=== PATIENT | female | born 1995 | race Caucasian/White ===

== ENCOUNTER → 2016-10-23 | Outpatient (CLI) | payer BC ==
[2016-10-23 16:28] LABS: BASO % 0.6 % (0.0-1.0); EOS # 0.2 K/mm3 (0.0-0.50); LARGE UNSTAINED CELL # 0.2 K/mm3 (0.0-0.4); LARGE UNSTAINED CELL % 2.5 % (0.0-4.0); LYMPH # 1.3 K/mm3 (1.5-6.5); LYMPH % 15.9 % (24.0-44.0); MEAN CORPUSCULAR HEMOGLOBIN 29.8 pg (27.0-33.0); MEAN CORPUSCULAR HGB CONC 35.7 g/dl (32.0-36.5); MEAN CORPUSCULAR VOLUME 83.4 fl (80.0-96.0); MONO # 0.5 K/mm3 (0.0-0.8); MONO % 6.4 % (0.0-5.0); NEUTROPHILS % 71.5 % (36.0-66.0); PLATELET COUNT, AUTOMATED 243 k/mm3 (150-450); RED CELL DISTRIBUTION WIDTH 12.3 % (11.5-14.5); WHITE BLOOD COUNT 8.4 K/mm3 (4.0-10.0)
[2016-10-23 18:04] LABS: HIV SCRN NEGATIVE (NEGATIVE)
[2016-10-23 18:05] LABS: CONTROL LINE INT CTR LINE PRESENT; HIV SCRN1 NEGATIVE (NEGATIVE)
== END ==
LOC: M LAB 14:38
PROVIDERS: ATTEND Advanced Practice Midwife
DX: Z34.81 Encounter for supervision of other normal pregnancy, first trimester (principal)

== ENCOUNTER → 2016-11-24 | Outpatient (REF) | payer BC | LOC: M LAB REF 17:12 | PROVIDERS: ATTEND Obstetrics & Gynecology | DX: Z34.82 Encounter for supervision of other normal pregnancy, second trimester (principal) ==

== ENCOUNTER → 2016-12-30 | Outpatient (CLI) | payer BC ==
--- NOTE | 2016-12-30 16:51 | REP ---
Clinical: Anatomical evaluation. Comparison: None . Findings: Examination demonstrates a single live intrauterine in variable presentation. motion is identified by technologist. Placenta is noted posterior fundally and grade zero without evidence for placenta previa or abruption. A small 6 mm placental cyst is noted in the mid placenta. Amniotic fluid volume is normal. Cervix measures 3.6 cm in length and appears closed. No evidence for nuchal cord. Gestational age by LMP 19 weeks 5 days with SHANI 05/21/2017 . Gestational age by current measurements 19 weeks 5 days with SHANI 05/21/2017 . FHR equals 150 beats per minute. BPD 4.5 cm 19 weeks 4 days HC 16.7 cm 19 weeks 2 days AC 14.5 cm 90 weeks 6 days FL 3.1 cm 19 weeks 5 days HL 3.0 cm 19 weeks 5 days HC/AC ratio 1.15 Estimated weight 310 grams ( 48th percentile). Anatomical assessment demonstrates normal structures including cranium, choroid plexus, cavum, cerebellum/posterior fossa, facial features, lungs, four-chamber heart/ventricular outflow tracts, diaphragm, stomach, cord insertion/three-vessel cord, kidneys/bladder, spine, and extremities. Impression: 1. Single live intrauterine in variable presentation demonstrating appropriate interval growth. 2. Anatomical assessment is complete and normal. 3. Benign appearing 6 mm cystic structure in the mid placenta likely placenta cyst versus small placental galaviz. Signed by Luis E Cobb MD 12/30/2016 04:42 P
== END ==
LOC: M RAD 15:12
PROVIDERS: ATTEND Obstetrics & Gynecology
DX: Z34.82 Encounter for supervision of other normal pregnancy, second trimester (principal); Z36 Encounter for antenatal screening of mother; Z3A.19 19 weeks gestation of pregnancy

== ENCOUNTER → 2017-01-23 | Outpatient (REF) | payer BC | LOC: M LAB REF 17:07 | PROVIDERS: ATTEND Advanced Practice Midwife | DX: Z34.83 Encounter for supervision of other normal pregnancy, third trimester (principal) ==

== ENCOUNTER → 2017-02-23 | Outpatient (REF) | payer BC | LOC: M LAB REF 12:44 | PROVIDERS: ATTEND Obstetrics & Gynecology | DX: Z34.83 Encounter for supervision of other normal pregnancy, third trimester (principal) ==

== ENCOUNTER → 2017-02-23 | Outpatient (CLI) | payer BC ==
[2017-02-23 13:06] LABS: BASO % 0.2 % (0.0-1.0); EOS # 0.4 K/mm3 (0.0-0.50); EOS % 3.5 % (0.0-3.0); LARGE UNSTAINED CELL # 0.1 K/mm3 (0.0-0.4); LARGE UNSTAINED CELL % 0.9 % (0.0-4.0); LYMPH # 1.3 K/mm3 (1.5-6.5); LYMPH % 11.1 % (24.0-44.0); MEAN CORPUSCULAR HEMOGLOBIN 30.1 pg (27.0-33.0); MEAN CORPUSCULAR HGB CONC 33.1 g/dl (32.0-36.5); MEAN CORPUSCULAR VOLUME 90.9 fl (80.0-96.0); MONO # 0.4 K/mm3 (0.0-0.8); MONO % 3.5 % (0.0-5.0); NEUTROPHILS # 9.3 K/mm3 (1.8-7.7); NEUTROPHILS % 80.8 % (36.0-66.0); PLATELET COUNT, AUTOMATED 296 k/mm3 (150-450); RED CELL DISTRIBUTION WIDTH 12.9 % (11.5-14.5); WHITE BLOOD COUNT 11.5 K/mm3 (4.0-10.0)
== END ==
LOC: M SMT 10:33
PROVIDERS: ATTEND Advanced Practice Midwife
DX: Z34.83 Encounter for supervision of other normal pregnancy, third trimester (principal)

== ENCOUNTER → 2017-03-25 | Outpatient (REF) | payer BC | LOC: M LAB REF 13:05 | PROVIDERS: ATTEND Obstetrics & Gynecology | DX: Z34.83 Encounter for supervision of other normal pregnancy, third trimester (principal) ==

== ENCOUNTER 2017-04-03 09:00 | Outpatient (RCR) | payer BC | END 2017-04-10 | disposition home or self-care (01) | LOC: M PT 09:00 | PROVIDERS: ATTEND Obstetrics & Gynecology | DX: Z51.89 Encounter for other specified aftercare (principal); O26.893 Other specified pregnancy related conditions, third trimester; M54.5 Low back pain ==

== ENCOUNTER → 2017-04-28 | Outpatient (REF) | payer BC ==
[~2017-04-28] MED LIST: ACET50TA PO; IBUP-1114 PO; PRENTAB9 PO
== END ==
LOC: M LAB REF 16:55
PROVIDERS: ATTEND Obstetrics & Gynecology
DX: O99.413 Diseases of the circulatory system complicating pregnancy, third trimester (principal); Z3A.00 Weeks of gestation of pregnancy not specified

== ENCOUNTER 2017-05-06 19:43 | Inpatient (IN) | payer BC ==
[~2017-05-06] VITALS: Ht 157.5 cm; Wt 69.0 kg
[2017-05-06] MEDS ORDERED: PENICILLIN G POTASSIUM IV 5 MU in D5W MINI-BAG PLUS 100 ML IV STA (20:02)
[2017-05-06 20:16] VITALS: BP 142/82
[2017-05-06] MEDS: miSOPROStol 50 MCG 1/2 TAB (S0191) PO SCH (20:43)
[2017-05-06 20:45] VITALS: BP 125/81
[2017-05-06] MEDS ORDERED: PANTOPRAZOLE 20 MG TAB PO ONE (21:00)
[2017-05-06 21:07] LABS: MEAN CORPUSCULAR HEMOGLOBIN 27.8 pg (27.0-33.0); MEAN CORPUSCULAR HGB CONC 33.9 g/dl (32.0-36.5); MEAN CORPUSCULAR VOLUME 81.9 fl (80.0-96.0); RED CELL DISTRIBUTION WIDTH 13.2 % (11.5-14.5); WHITE BLOOD COUNT 17.1 K/mm3 (4.0-10.0)
[2017-05-06 21:16] VITALS: BP 128/82
[2017-05-06 21:37] LABS: ALT/SGPT 12 U/L (12-78); AST/SGOT 15 U/L (15-37); BILIRUBIN,TOTAL 0.3 MG/DL (0.2-1.0); CREATININE FOR GFR 0.87 MG/DL (0.55-1.02); GLOMERULAR FILTRATION RATE > 60.0 (>60); URIC ACID 3.4 MG/DL (2.6-6.0)
[2017-05-06 21:46] VITALS: BP 131/82
[2017-05-06 22:15] VITALS: BP 133/84
[2017-05-06 23:59] VITALS: BP 132/86
[2017-05-07] MEDS ORDERED: PENICILLIN G POTASSIUM IV 2.5 MU in D5W 100 ML IV SCH ×2 (00:15→14:00)
[2017-05-07] MEDS: miSOPROStol 50 MCG 1/2 TAB (S0191) PO SCH ×3 (00:48→09:53)
[2017-05-07 00:56] VITALS: BP 125/79
[2017-05-07 01:49] VITALS: BP 133/83
[2017-05-07 03:51] VITALS: BP 127/78
--- NOTE | 2017-05-07 05:21 | HPE ---
DATE OF ADMISSION: 05/06/2017 HISTORY: Maria Isabel is a 21-year-old 1, para 0 at 37 and 6/7 weeks gestation with an estimated date of confinement (EDC) of 05/21/2017, based on first trimester ultrasound. She presents to labor and delivery today following a routine appointment in the office and noted to have elevated blood pressure with proteinuria. The decision was made following discussion with Dr. Garcia and Dr. Dahl for induction of labor due to preeclampsia. She does deny headache, visual disturbances, epigastric pain and right upper quadrant discomfort. She does deny regular contractions, vaginal bleeding and leakage of fluid. Her fetus has been active. care was initiated at [facility] in the first trimester. course complicated by a history of asthma that is been well controlled with Pulmicort inhaler, recurrent heart palpitations, tachycardia with a cardiology referral with normal echocardiogram. No recommendations made, okayed for a vaginal delivery. OBSTETRICAL HISTORY: Primigravida. OBSTETRIC LABORATORY DATA: Blood type A positive, antibody screen negative, rubella immune, VDRL nonreactive. She did have a positive urine culture, was treated and then did ultimately have a negative followup urine culture. Hepatitis B surface antigen negative, HIV negative. Hepatitis C antibody nonreactive. Gonorrhea and chlamydia negative. She did decline genetic serum screening markers. Gestational diabetic screening normal at 125, and her GBS is positive. PAST MEDICAL HISTORY: Asthma, seasonal allergies, childhood varicella. SURGERIES: None. FAMILY HISTORY: Thyroid dysfunction. SOCIAL HISTORY The patient is single. Her father of the baby is at bedside and supportive. She is a nonsmoker. Denies alcohol and drug use. No history of sexually transmitted infections and denies history of abuse, physical, sexual and emotional. ALLERGIES: No known drug allergies. CURRENT MEDICATIONS: - Zantac 150 mg by mouth twice a day - Pulmicort inhaler - Q-Rachel inhaler - vitamins OBJECTIVE: Temperature 98.3, pulse 74, respirations 16, blood pressure 142/82. heart rate is 145 with moderate variability, positive accelerations. No decelerations observed. She learned oriented times three. She is katerine every 3-5 minutes, mild to palpation. Her abdomen is gravid, cephalic presentation. Estimated weight 7 pounds. Sterile vaginal exam: Cervix is closed, thick, moderate texture, posterior, -3 station. ASSESSMENT: Intrauterine at 37-6/7 weeks gestation. heart rate category one, preeclampsia. PLAN: Admit the patient to labor and delivery. Labs including a pre-eclamptic profile and a spot urine. Out of bed ad yovani. Regular diet at this time. Start misoprostol 50 mcg by mouth every four hours for cervical ripening. I did review risks to induction of labor including but not limited to intolerance to labor, failed induction and increased risk for section. Reviewed risks related to expected management including worsening maternal conditioning, seizures, stroke, worsening condition. The patient was has had all her questions answered and does desire to proceed with induction at this time. I do anticipate cervical ripening. Will consider Nam bulb insertion potential. The patient does desire an epidural when she is in active labor.
[2017-05-07 05:56] VITALS: BP 128/81
[2017-05-07] MEDS ORDERED: PANTOPRAZOLE 20 MG TAB PO SCH (09:00)
[2017-05-07] MEDS ORDERED: PROMETHAZINE INJ 25 MG/ML VIAL (J2550) IV PRN (10:00)
[2017-05-07] MEDS ORDERED: BUTORPHANOL 2 MG/ML INJ (J0595) IV ONE (10:00)
[2017-05-07] MEDS ORDERED: PENICILLIN G POTASSIUM IV 5 MU in D5W MINI-BAG PLUS 100 ML IV STA (10:02)
[2017-05-07] MEDS ORDERED: FENTANYL 2MCG/ML ROPIVACAINE 0.2% IN 0.9% NACL 200ML IVBAG As Ordered ONE (13:09)
[2017-05-07] MEDS ORDERED: ONDANSETRON 4MG/2ML VIAL (J2405) As Ordered ONE (13:55)
[2017-05-07] MEDS ORDERED: EPIDURAL/PCA KEYS XX PRN (14:00)
[2017-05-07] MEDS ORDERED: ONDANSETRON 4MG/2ML VIAL (J2405) IV PRN ×2 (14:00→16:00)
[2017-05-07] MEDS ORDERED: diphenhydrAMINE INJ 50MG/ML VIAL (J1200) IV PRN (14:00)
[2017-05-07] MEDS ORDERED: EPIDURAL COMMENT XX SCH (14:00)
[2017-05-07] MEDS ORDERED: FENTANYL/ROPIVACAINE/NACL BAG 200 ML EPIDURAL SCH (14:00)
[2017-05-07] MEDS ORDERED: REFRIGERATOR IV KEYS XX PRN (14:00)
[2017-05-07] MEDS ORDERED: NALOXONE INJ 0.4 MG/1 ML VIAL (J2310) IV PRN (14:00)
[2017-05-07] MEDS ORDERED: LR 1,000 ML IV SCH (14:00)
[2017-05-07] MEDS ORDERED: ePHEDrine SULFATE 25 MG/5 ML(5MG/ML) SYRINGE IV PRN (14:00)
[2017-05-07] MEDS ORDERED: LACTATED RINGER'S 1000 ML IV PRN (14:00)
[2017-05-07] MEDS ORDERED: OXYTOCIN DRIP 30 UNITS in APPROPRIATE DILUENT 1 EA IV SCH ×2 (14:00→15:57)
[2017-05-07] MEDS ORDERED: ACETAMINOPHEN 500 MG TAB PO PRN (16:00)
[2017-05-07] MEDS ORDERED: MEASLES,MUMPS,RUBELLA VACCINE INJ (MMR-II) (90707) SC SCH (16:00)
[2017-05-07] MEDS ORDERED: ANUSOL HC CREAM 30GM TOP PRN (16:00)
[2017-05-07] MEDS ORDERED: MOM 30ML SUSPENSION UDC PO PRN (16:00)
[2017-05-07] MEDS ORDERED: DOCUSATE SODIUM 100 MG CAP PO PRN (16:00)
[2017-05-07] MEDS ORDERED: METHYLERGONOVINE MALEATE 0.2 MG TAB PO PRN (16:00)
[2017-05-07] MEDS ORDERED: RHOGAM 300 MCG (1500 IU) INJ (J2790) IM SCH (16:00)
[2017-05-07] MEDS ORDERED: DIBUCAINE 1% OINTMENT 30GM TOP PRN (16:00)
--- NOTE | 2017-05-07 16:30 | DN ---
DATE: 05/07/2017 TIME OF : 1538 hours GENDER: Female SCORES: 9 and 9 WEIGHT: 6 pounds 7 ounces or 2930 grams. ANESTHESIA: Epidural. LACERATIONS: None. COUNTS: Five laparotomy sponges accounted for prior to and after delivery. DELIVERY NOTE: On 05/07/2017 at 1538 hours, Mrs. Hays, a 21-year-old 1, now para 1, had a spontaneous vaginal delivery of a live born female infant, scores of 9 and 9. Weight was 2930 grams or 6 pounds 7 ounces. Head was delivered right occiput anterior (LEWIS) over intact peritoneum, followed by delivery of left anterior shoulder, right posterior shoulder and corpus. was handed to mom with a good cry. Cord was clamped times two and was cut by the father of the baby under my direction. Cord blood was then obtained, placenta was then drained and delivered grossly intact. A premixed bag of 500 mL of normal saline with 30 units of Pitocin was then bolused along with uterine massage until the uterus was firm. On inspection, cervix, vagina and perineum was grossly intact and hemostatic. Mom and baby recovering in stable condition. The couple has decided to name their daughter Emi Mcginnis.
[2017-05-07 18:11] VITALS: BP 153/87
[2017-05-08] MEDS: IBUPROFEN 800 MG TAB PO PRN ×2 (01:27→20:06)
[2017-05-08 02:00] VITALS: BP 131/84
[2017-05-08 06:00] VITALS: BP 126/79
[2017-05-08] MEDS: PRENATAL VITAMINS CHEWABLE TABLET PO SCH (08:49)
[2017-05-08 10:00] VITALS: BP 134/80
[2017-05-08 14:24] VITALS: BP 125/76
[2017-05-08 18:11] VITALS: BP 122/71
[2017-05-09 06:00] VITALS: BP 127/79
[2017-05-09] MEDS: PRENATAL VITAMINS CHEWABLE TABLET PO SCH (07:53)
[2017-05-09] MEDS ORDERED: IBUP-1114 PO (09:54)
[2017-05-09] MEDS ORDERED: PRENTAB9 PO (09:54)
[2017-05-09] MEDS ORDERED: ACET50TA PO (09:54)
--- NOTE | 2017-05-09 12:57 | DS.PDOC ---
Discharge Summary General Date of Admission May 06, 2017 at 19:43 Date of Discharge May 09, 2017 at 0930. Primary Care Physician: BERNARDA POWELL CNM Attending Physician: SEBAS GONZALEZ MD. Discharge Summary PROCEDURES PERFORMED DURING STAY: None. ADMITTING DIAGNOSES: 1. IUP at 37.6 weeks gestation. 2. Preeclampsia. DISCHARGE DIAGNOSES: 1. Day 2 . COMPLICATIONS/CHIEF COMPLAINT: IOL for preeclampsia. HISTORY OF PRESENT ILLNESS: Patient is a 21 year old female who is a at 37.6 weeks gestation with an SHANI of 05/21/17. She was admitted to L&D for IOL for preeclampsia. She has a history of asthma and varicella (as a child). Patient had an uncomplicated vaginal delivery on 05/07/17 over an intact perineum. She has been without difficulty. Patient denies signs or symptoms of preeclampsia presently. HOSPITAL COURSE: uncomplicated. DISCHARGE MEDICATIONS: Please see below. ALLERGIES: Please see below. PHYSICAL EXAMINATION ON DISCHARGE: VITAL SIGNS: Please see below. GENERAL: Alert and oriented x3. RESPIRATORY EXAMINATION: Respiratory rate regular. No use of accessory muscles. ABDOMINAL EXAMINATION: Fundus is firm. PERINEUM: Lochia scant dark red. EXTREMITIES: Generalized edema noted bilaterally feet and ankles. LABORATORY DATA: Please see below. ACTIVITY: As tolerated, pelvic rest. . DIET: regular. DISCHARGE INSTRUCTIONS: 1. Discharge to home. 2. Follow up in 6 weeks at [facility] [place]. 3. Reviewed signs and symptoms of preeclampsia, mastitis, endometritis, DVT, pulmonary embolism, hemorrhage, depression, and psychosis. Education done of pelvic rest, pain management, and malcolm care. Patient encouraged to call office with any signs or symptoms of issues listed above. DISCHARGE CONDITION: Stable. Vital Signs/I&Os Vital Signs Date Time Temp Pulse Resp B/P (MAP) Pulse Ox O2 Delivery O2 Flow Rate FiO2 05/09/17 06:00 98.5 67 16 127/79 (95) 98 Room Air I&O- Last 24 Hours up to 6 AM 05/09/17 06:00 Intake Total 960 ml Balance 960 ml Discharge Medications Scheduled Ibuprofen (Ibuprofen) 400 Mg Tab, 800 MG PO Q8HP, (Reported) Multivitamins/ ( 27-0.8 mg) 1 Tab Tab, 1 TAB PO DAILY, (Reported ) Scheduled PRN Acetaminophen (Mapap) 500 Mg Tab, 1,000 MG PO Q6HP PRN for PAIN, (Reported) Allergies Coded Allergies: TAPE (Unverified Allergy, Unknown, 05/06/17) KARTHIKEYAN WEAVER CNM May 09, 2017 12:57
== END 2017-05-09 12:20 | disposition home or self-care (01) | DRG 560 ==
LOC: M LDI 19:43 → M OBS 05-07 17:44
PROVIDERS: ADMIT Advanced Practice Midwife; ATTEND Advanced Practice Midwife
PROC: 3E0DXGC Introduction of Other Therapeutic Substance into Mouth and Pharynx, External Approach (ICD-10-PCS; 2017-05-06)
PROC: 10E0XZZ Delivery of Products of Conception, External Approach (ICD-10-PCS; principal; 2017-05-07)
DX: O14.94 Unspecified pre-eclampsia, complicating childbirth (principal); Z37.0 Single live birth; Z3A.37 37 weeks gestation of pregnancy; J45.909 Unspecified asthma, uncomplicated; O99.53 Diseases of the respiratory system complicating the puerperium; O99.820 Streptococcus B carrier state complicating pregnancy; Z79.899 Other long term (current) drug therapy

== ENCOUNTER → 2017-12-31 | Outpatient (REF) | payer OTHER, MEDICAID ==
[2017-12-31 16:15] LABS: CHLAMYDIA DNA AMPLIFICATION NEGATIVE (NEGATIVE); GC DNA AMPLIFICATION NEGATIVE (NEGATIVE)
== END ==
LOC: M LAB REF 12:48
DX: Z12.4 Encounter for screening for malignant neoplasm of cervix (principal)
CPT/HCPCS: 87591

== ENCOUNTER → 2018-06-30 | Outpatient (CLI) | payer OTHER | LOC: M RAD 07:29 | DX: R51 Headache (principal); R26.89 Other abnormalities of gait and mobility | CPT/HCPCS: 70551 ==

== ENCOUNTER → 2018-11-19 | Outpatient (REF) | payer OTHER ==
[~2018-11-19] MED LIST changes: -ACET50TA PO; +MAPA500T2 PO
[2018-11-19 20:29] LABS: CHLAMYDIA DNA AMPLIFICATION NEGATIVE (NEGATIVE); GC DNA AMPLIFICATION NEGATIVE (NEGATIVE)
== END ==
LOC: M LAB REF 17:10
PROVIDERS: ATTEND Obstetrics & Gynecology
DX: Z11.3 Encounter for screening for infections with a predominantly sexual mode of transmission (principal)